=== PATIENT | female | born 1960 | race Caucasian/White ===

== ENCOUNTER 2016-07-04 17:42 | Emergency (ER) | payer SELFPAY ==
[~2016-07-04] VITALS: Ht 198.1 cm; Wt 65.6 kg
[~2016-07-04 17:42] MED LIST: ADVAI100I PO; ALBU1AER INH; CETI10 PO; FLOV110A INH; FLUT1SPR9 EACH NARE; GLUCTAB PO; LANTUS2P SC; LISI-363 PO; METH750T2 PO; ZOCO40TA PO
[2016-07-04 17:50] VITALS: BP 134/86; PULSE 116; RESP 16; TEMP 98.4; O2SAT 96
[2016-07-04] MEDS ORDERED: INSU1.2I SQ (18:13)
[2016-07-04] MEDS ORDERED: ALBUAER3 INH (18:13)
[2016-07-04] MEDS ORDERED: LISI-515 PO (18:13)
[2016-07-04] MEDS ORDERED: METF1000 PO (18:13)
[2016-07-04 18:44] VITALS: BP 125/82
--- NOTE | 2016-07-04 18:45 | PD ---
HPI Chief Complaint: Dizziness Time Seen by Provider: 18:31 Travel History International Travel<30 days: No Contact w/Intl Traveler<30days: No Traveled to known affect area: No History of Present Illness HPI The patient was seen and examined in the presence of the nurse. 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 She's also been tracking her blood pressure on her 20 mg lisinopril. Sometimes she gets pressures in the 90s systolic and she doesn't think she needs the medicine anymore. She has no headache or chest pain or syncope. At this time she feels fine and her blood pressure is 125 systolic. symptoms severity this time is negligible PFSH Past Medical History Hx Anticoagulant Therapy: Yes (asa 81mg) Asthma: Yes Anxiety: Yes Depression: Yes Cardiovascular Problems: Yes (htn on meds) High Cholesterol: Yes Coronary Artery Disease: Yes Diabetes: Yes (type 2) Patient Takes Glucophage: No Hepatitis: Yes (HEP C) Hypertension: Yes Respiratory: Yes (asthma) Tetanus Vaccination: Unknown Influenza Vaccination: No ?: Not Menopausal: Yes : 3 Para: 2 Miscarriage: 1 Social History Alcohol Use: Yes ("4 DRINKS PER WEEK") Tobacco Use: Yes (1 PPD) Substance Use: No (past) Allergies-Medications (Allergen,Severity, Reaction): Coded Allergies: No Known Allergies (Unverified , 07/04/16) Reported Meds & Prescriptions Reported Meds & Active Scripts Active Reported Mckenna Casas Pen Inj (Insulin Glargine) 300 Unit/Ml Pen 1 Units SQ Proair Hfa 8.5 GM Inh (Albuterol Sulfate) 90 Mcg/Act Aer 1 Puff INH Q4H PRN 108 mcg/actuation Metformin (Metformin HCl) 1,000 Mg Tab 1,000 Mg PO BIDPC With meals Lisinopril 20 Mg Tab 20 Mg PO DAILY Review of Systems General / Constitutional: No: Fever HENT: Positive: Lightheadedness, No: Headaches Cardiovascular: No: Chest Pain or Discomfort Respiratory: No: Cough Gastrointestinal: No: Vomiting Physical Exam Narrative GENERAL: Well-nourished, well-developed patient in no apparent distress. SKIN: Focused skin assessment reveals no rash and nodules. Skin is Warm and dry. HEAD: Atraumatic. Normocephalic. EYES: Pupils equal and round. No scleral icterus. No injection or drainage. ENT: No nasal bleeding or discharge. Mucous membranes pink and moist. NECK: Trachea midline. No JVD. CARDIOVASCULAR: Regular rate and rhythm. No murmur appreciated. RESPIRATORY: No accessory muscle use. Clear to auscultation. Breath sounds equal bilaterally. GASTROINTESTINAL: Abdomen soft, non-tender, nondistended. Hepatic and splenic margins not palpable. MUSCULOSKELETAL: No obvious deformities. No clubbing. No cyanosis. No edema. NEUROLOGICAL: Awake and alert. No obvious cranial nerve deficits. Motor grossly within normal limits. Normal speech. PSYCHIATRIC: Appropriate mood and affect; insight and judgment normal. Data Data Last Documented VS Vital Signs Date Time Temp Pulse Resp B/P Pulse Ox O2 Delivery O2 Flow Rate FiO2 07/04/16 17:50 98.4 116 16 134/86 96 MDM Medical Decision Making Medical Screen Exam Complete: Yes Emergency Medical Condition: Yes Medical Record Reviewed: Yes Differential Diagnosis Overmedication, hypotensive episode, vasovagal episode, deconditioning Narrative Course I have reviewed the patient's electronic medical record. Patient's blood pressure and blood sugar are normal Her symptoms have resolved. Sounds like she's getting low pressures and I have asked her to hold her medication and track her pressure frequently She should try to get primary care follow-up Diagnosis Primary Impression: Episodic lightheadedness Additional Impression: Hypotensive episode Additional Instructions: Check and record blood pressure daily The patient was advised to follow up with their physician and return if they worsen. Med/Other Pt SpecificInfo: Other Disposition: 01 DISCHARGE HOME Condition: Stable Vincenzo Lynne MD Jul 04, 2016 18:45
== END 2016-07-04 19:03 | disposition home or self-care (01) ==
LOC: PHED 17:42
DX: R42 Dizziness and giddiness (principal); I95.9 Hypotension, unspecified; I10 Essential (primary) hypertension; E78.00 Pure hypercholesterolemia, unspecified; E11.9 Type 2 diabetes mellitus without complications; F17.210 Nicotine dependence, cigarettes, uncomplicated; Z79.4 Long term (current) use of insulin; Z79.82 Long term (current) use of aspirin
CPT/HCPCS: 99283

== ENCOUNTER 2017-07-13 14:48 | Emergency (ER) | payer SELFPAY ==
[~2017-07-13] VITALS: Ht 167.6 cm; Wt 71.5 kg
[~2017-07-13 14:48] MED LIST changes: -ADVAI100I PO; -ALBU1AER INH; +ALBUAER3 INH; -CETI10 PO; -FLOV110A INH; -FLUT1SPR9 EACH NARE; -GLUCTAB PO; +INSU1.2I SQ; -LANTUS2P SC; -LISI-363 PO; +LISI-515 PO; +METF1000 PO; -METH750T2 PO; -ZOCO40TA PO
[2017-07-13 14:53] VITALS: BP 180/77; PULSE 109; RESP 16; TEMP 98.6; O2SAT 98
[2017-07-13 15:09] VITALS: PULSE 93
[2017-07-13] MEDS ORDERED: TRID0.1C TOPICAL (15:17)
--- NOTE | 2017-07-13 15:25 | PD ---
HPI Chief Complaint: Skin Problem Time Seen by Provider: 14:59 Travel History International Travel<30 days: No Contact w/Intl Traveler<30days: No Traveled to known affect area: No History of Present Illness HPI 57-year-old female presents to the emergency room for evaluation of chronic rash to bilateral pulmonary. Patient states she first developed a rash 2 months ago. She denies any new or recent changes in environmental, medication, or food exposures. She has changed her shampoo and detergent since developing the rash just in case but it did not improve. She tried to treat it is fungal with clotrimazole without relief. She has also been applying Benadryl cream. She got some [id number] steroid cream which made her symptoms worse. She was also prescribed a steroid cream that significantly reduced and almost completely resolved her symptoms. Patient states over the past week she has began to develop symptoms on her feet. PFSH Past Medical History Hx Anticoagulant Therapy: Yes (asa 81mg) Asthma: Yes Anxiety: Yes Depression: Yes Cardiovascular Problems: Yes (htn on meds) High Cholesterol: Yes Coronary Artery Disease: Yes Diabetes: Yes (type 2) Patient Takes Glucophage: Yes Diminished Hearing: No Hepatitis: Yes (HEP C) Hypertension: Yes Respiratory: Yes (copd) Tetanus Vaccination: > 5 Years Influenza Vaccination: No ?: Not Menopausal: Yes : 3 Para: 2 Miscarriage: 1 Social History Alcohol Use: Yes ("4 DRINKS PER WEEK") Tobacco Use: Yes (1 PPD) Substance Use: No (past) Allergies-Medications (Allergen,Severity, Reaction): Coded Allergies: No Known Allergies (Unverified Adverse Reaction, Unknown, 07/13/17) Reported Meds & Prescriptions Reported Meds & Active Scripts Active Triderm Topical (Triamcinolone Topical) 0.1 % Cream 1 Applic TOPICAL BID 1 Days Reported Metformin (Metformin HCl) 1,000 Mg Tab 1,000 Mg PO BIDPC With meals Lisinopril 20 Mg Tab 20 Mg PO DAILY Review of Systems Except as stated in HPI: all other systems reviewed are Neg Physical Exam Narrative GENERAL: Well-nourished, well-developed female in no acute distress. Afebrile. Ambulatory. SKIN: Focused skin assessment warm/dry. Slightly raised, scaling, peeling rash to bilateral palms. Minimal finger involvement. Nontender. No impetiginization. No significant surrounding erythema. HEAD: Normocephalic. EYES: No scleral icterus. No injection or drainage. NECK: Supple, trachea midline. No JVD or lymphadenopathy. CARDIOVASCULAR: Regular rate and rhythm without murmurs, gallops, or rubs. RESPIRATORY: Breath sounds equal bilaterally. No accessory muscle use. PSYCHIATRIC: No delusional thought processes. No hallucinations. Data Data Last Documented VS Vital Signs Date Time Temp Pulse Resp B/P (MAP) Pulse Ox O2 Delivery O2 Flow Rate FiO2 07/13/17 15:09 93 07/13/17 14:53 98.6 16 180/77 (111) 98 MDM Medical Decision Making Medical Screen Exam Complete: Yes Emergency Medical Condition: Yes Medical Record Reviewed: Yes Differential Diagnosis Contact dermatitis, skin lesion, autoimmune disorder, fungal infection Narrative Course 57-year-old female presents to the emergency room for evaluation of rash to her bilateral hands for the past 2 months. She denies any new environmental, food, or medication exposures. Physical exam reveals slightly raised, scaling, peeling rash to bilateral palms. Minimal finger involvement. Nontender. No impetiginization. No significant surrounding erythema. Patient may have autoimmune disorder such as psoriasis but I suspect contact dermatitis. She will be discharged with prescription for triamcinolone. Told to follow-up with a ecommerce marketing specialist or return for worsening symptoms. She understands and agrees to plan. Diagnosis Primary Impression: Contact dermatitis and eczema due to cause Qualified Codes: L25.9 - Unspecified contact dermatitis, unspecified cause Referrals: Primary Care Physician Additional Instructions: Apply cream as directed 2-4 times daily. Follow-up with a ecommerce marketing specialist. Return for worsening symptoms. Med/Other Pt SpecificInfo: Prescription(s) given Scripts Triamcinolone Topical (Triderm Topical) 0.1 % Cream 1 APPLIC TOPICAL BID for Inflammation for 1 Day, TUBE 0 Refills Prov: Willie Wallace MD 07/13/17 Disposition: 01 DISCHARGE HOME Condition: Stable Reyna Wilcox Jul 13, 2017 15:25
== END 2017-07-13 15:45 | disposition home or self-care (01) ==
LOC: PHEFT 14:48
DX: L25.9 Unspecified contact dermatitis, unspecified cause (principal); B19.20 Unspecified viral hepatitis C without hepatic coma; E11.9 Type 2 diabetes mellitus without complications; E78.00 Pure hypercholesterolemia, unspecified; F32.9 Major depressive disorder, single episode, unspecified; F41.9 Anxiety disorder, unspecified; I10 Essential (primary) hypertension; I25.10 Atherosclerotic heart disease of native coronary artery without angina pectoris; F17.200 Nicotine dependence, unspecified, uncomplicated
CPT/HCPCS: 99282